=== PATIENT | female | born 1965 | race Caucasian/White ===

== ENCOUNTER → 2018-04-01 | Outpatient (CLI) | END | disposition home or self-care (01) ==

== ENCOUNTER → 2018-05-06 | Outpatient (CLI) | END | disposition home or self-care (01) ==

== ENCOUNTER → 2018-05-11 | Outpatient (CLI) | END | disposition home or self-care (01) ==

== ENCOUNTER → 2018-05-14 | Outpatient (CLI) | END | disposition home or self-care (01) ==

== ENCOUNTER → 2018-05-21 | Outpatient (CLI) | END | disposition home or self-care (01) ==

== ENCOUNTER → 2018-05-27 | Outpatient (CLI) | END | disposition home or self-care (01) ==

== ENCOUNTER → 2018-07-03 | Outpatient (CLI) | END | disposition home or self-care (01) ==

== ENCOUNTER 2018-07-10 06:33 | Day surgery (SDC) | END 2018-07-11 16:35 | disposition home or self-care (01) ==

== ENCOUNTER → 2018-08-05 | Outpatient (CLI) | END | disposition home or self-care (01) ==

== ENCOUNTER → 2018-08-05 | Outpatient (CLI) | END | disposition home or self-care (01) ==

== ENCOUNTER → 2018-09-29 | Outpatient (CLI) | END | disposition home or self-care (01) ==

== ENCOUNTER 2018-10-07 07:09 | Day surgery (SDC) | END 2018-10-07 10:15 | disposition home or self-care (01) ==

== ENCOUNTER 2019-06-28 08:15 | Emergency (ER) | payer BC ==
[~2019-06-28] VITALS: Ht 160 cm; Wt 99.3 kg
[~2019-06-28 08:15] MED LIST: AMOX500C2 PO; BIOT1TAB10 PO; ERGO500013 PO; GLYB2.5T2 PO; LORA-441 PO; MELO7.5T38 PO; METF500T24 PO; SIMV40TA2 PO
[2019-06-28 08:16] VITALS: BP 133/74; PULSE 89; RESP 18; Ht 160 cm; Wt 99.3 kg
== END 2019-06-28 08:39 | disposition home or self-care (01) ==
LOC: FTE 08:15
DX: J02.9 Acute pharyngitis, unspecified (principal); E11.9 Type 2 diabetes mellitus without complications; Z79.84 Long term (current) use of oral hypoglycemic drugs
CPT/HCPCS: 99283

== ENCOUNTER → 2019-07-02 | Outpatient (CLI) | payer BC | END | disposition home or self-care (01) | LOC: LAB 07:32 | PROVIDERS: ATTEND Internal Medicine | DX: E11.9 Type 2 diabetes mellitus without complications (principal); E03.9 Hypothyroidism, unspecified; E78.5 Hyperlipidemia, unspecified | CPT/HCPCS: 80053; 80061; 83036; 84436; 84443; 85025 ==